=== PATIENT | female | born 1975 | race Caucasian/White ===

== ENCOUNTER 2017-07-29 15:33 | Emergency (ER) | payer MEDICAID, OTHER ==
[~2017-07-29] VITALS: Ht 157.5 cm; Wt 95.0 kg
[~2017-07-29 15:33] MED LIST: GABA600T2 PO; LURA120T PO; PROP10TA PO
[2017-07-29] MEDS ORDERED: LORA-446 PO (15:54)
[2017-07-29] MEDS ORDERED: SODIUM CHLORIDE 0.9% 1,000 ML IV ONE (16:01)
[2017-07-29] MEDS ORDERED: morphine SULFATE 10 MG/ML, 1ML ONE (16:11)
[2017-07-29] MEDS ORDERED: METOCLOPRAMIDE 5 MG/ML, 2ML ONE (16:11)
[2017-07-29] MEDS: MORPHINE SULFATE 4 MG/ML, 1ML IVPush PRN ×2 (16:15→16:45)
[2017-07-29] MEDS ORDERED: SODIUM CHLORIDE FLUSH 10ML SYR IVF ONE (16:30)
[2017-07-29] MEDS ORDERED: METOCLOPRAMIDE 5 MG/ML, 2ML IVPush ONE (16:30)
[2017-07-29 17:47] VITALS: BP 135/77
== END 2017-07-29 17:49 | disposition home or self-care (01) ==
LOC: ED 17:14
DX: R51 Headache (principal); Z90.49 Acquired absence of other specified parts of digestive tract; F17.200 Nicotine dependence, unspecified, uncomplicated
CPT/HCPCS: 70450; 96361; 96374; 96375; 96376; 99284; J2765; J7030

== ENCOUNTER 2017-08-24 20:02 | Emergency (ER) | payer MEDICAID ==
[~2017-08-24] VITALS: Ht 158.8 cm; Wt 95.0 kg
[~2017-08-24 20:02] MED LIST changes: +LORA-446 PO
== END 2017-08-24 21:49 | disposition home or self-care (01) ==
LOC: EDBD 20:02 → MERGE 21:44 → ED 21:44
DX: G24.09 Other drug induced dystonia (principal); T50.995A Adverse effect of other drugs, medicaments and biological substances, initial encounter; N76.4 Abscess of vulva; Y92.89 Other specified places as the place of occurrence of the external cause
CPT/HCPCS: 99283

== ENCOUNTER 2017-11-17 09:35 | Emergency (ER) | payer MEDICAID ==
[~2017-11-17] VITALS: Ht 158.8 cm; Wt 77.9 kg
[2017-11-17 09:37] VITALS: BP 126/84
[2017-11-17 10:36] LABS: CULTURE INDICATED? YES; MICROSCOPIC INDICATED
[2017-11-18] MEDS ORDERED: RISP2TAB3 PO (07:57)
== END 2017-11-17 11:10 | disposition home or self-care (01) ==
LOC: ED 10:19
DX: N75.1 Abscess of Bartholin's gland (principal); Z90.49 Acquired absence of other specified parts of digestive tract
CPT/HCPCS: 81001; 87086; 99284

== ENCOUNTER 2017-11-18 04:40 | Emergency (ER) | payer MEDICAID ==
[2017-11-18] MEDS ORDERED: SODIUM CHLORIDE 0.9% 1,000ML IVBOLUS ONE ×2 (05:30→08:30)
[2017-11-18] MEDS ORDERED: SODIUM CHLORIDE FLUSH 10ML SYR IVF ONE ×2 (05:30→08:30)
[2017-11-18 05:44] LABS: BASOPHILS % (AUTO) 0 % (0-1); EOSINOPHILS # (AUTO) 0.04 x10^3/uL (0-0.4); EOSINOPHILS % (AUTO) 0 % (1-7); LYMPHOCYTES # (AUTO) 1.99 x10^3/uL (1-3.4); LYMPHOCYTES % (AUTO) 19 % (22-44); MD NO; MEAN CORPUSCULAR HEMOGLOBIN 32.1 pg (27.0-34.8); MEAN CORPUSCULAR HGB CONC 34.4 g/dL (32.4-35.8); MEAN CORPUSCULAR VOLUME 93.2 fL (80-100); MEAN PLATELET VOLUME 9.4 fL (7.4-10.4); MONOCYTES # (AUTO) 0.32 x10^3/uL (0.2-0.8); MONOCYTES % (AUTO) 3 % (2-9); NEUTROPHILS # (AUTO) 8.15 x10^3/uL (1.8-6.8); NEUTROPHILS % (AUTO) 78 % (42-75); PLATELET COUNT 290 x10^3/uL (130-400); RED BLOOD COUNT 4.67 x10^6/uL (3.82-5.3); RED CELL DISTRIBUTION WIDTH 13.1 % (9.6-15.2)
[2017-11-18 05:59] LABS: ALBUMIN 4.3 g/dL (3.4-5.0); ANION GAP 14 mmol/L (5-15); CHLORIDE 107 mmol/L (98-107); CREATININE 0.75 mg/dL (0.55-1.02); SALICYLATE LEVEL 2.3 mg/dL (2.8-20.0)
[2017-11-18 06:08] LABS: ACETAMINOPHEN < 2 mcg/mL (10-30)
[2017-11-18 06:46] LABS: MICROSCOPIC AUTO
[2017-11-18 06:47] LABS: CULTURE INDICATED? NO
[2017-11-18 06:49] LABS: AMPHETAMINE SCREEN, URINE Negative (Negative); BARBITURATE SCREEN, URINE Negative (Negative); BENZODIAZEPINE SCREEN, URINE Negative (Negative); CANNABINOID SCREEN, URINE Negative (Negative); COCAINE SCREEN, URINE Negative (Negative); METHADONE SCREEN, URINE Negative (Negative); OPIATE SCREEN, URINE Negative (Negative)
[2017-11-18] MEDS ORDERED: RISP2TAB3 PO (07:57)
[2017-11-18 07:59] VITALS: BP 116/79
== END 2017-11-18 10:10 | disposition home or self-care (01) ==
LOC: ED 05:30
DX: R41.82 Altered mental status, unspecified (principal); I45.6 Pre-excitation syndrome
CPT/HCPCS: 36415; 70450; 71045; 80048; 80307; 80329; 81001; 82040; 82140; 85025; 93005; 96360; 99285; J7030; G0480

== ENCOUNTER 2018-03-02 18:53 | Emergency (ER) | payer MEDICAID ==
[~2018-03-02] VITALS: Ht 157.5 cm; Wt 78.0 kg
[~2018-03-02 18:53] MED LIST changes: +BENZ2AMP4 PO; +LURA20TA PO; +RISP2TAB3 PO
[2018-03-02] MEDS ORDERED: ASPIRIN 81 MG TABLET CHEW ONE (19:21)
[2018-03-02] MEDS ORDERED: ASPIRIN 81 MG TABLET CHEW PO ONE (19:30)
[2018-03-02 19:32] LABS: BASOPHILS # (AUTO) 0.03 x10^3/uL (0-0.1); BASOPHILS % (AUTO) 0 % (0-1); EOSINOPHILS # (AUTO) 0.16 x10^3/uL (0-0.4); EOSINOPHILS % (AUTO) 2 % (1-7); LYMPHOCYTES # (AUTO) 2.36 x10^3/uL (1-3.4); LYMPHOCYTES % (AUTO) 27 % (22-44); MD NO; MEAN CORPUSCULAR HEMOGLOBIN 32.2 pg (27.0-34.8); MEAN CORPUSCULAR HGB CONC 34.2 g/dL (32.4-35.8); MEAN CORPUSCULAR VOLUME 94.3 fL (80-100); MONOCYTES # (AUTO) 0.39 x10^3/uL (0.2-0.8); MONOCYTES % (AUTO) 4 % (2-9); NEUTROPHILS # (AUTO) 5.86 x10^3/uL (1.8-6.8); NEUTROPHILS % (AUTO) 67 % (42-75); PLATELET COUNT 244 x10^3/uL (130-400); RED BLOOD COUNT 3.98 x10^6/uL (3.82-5.3); RED CELL DISTRIBUTION WIDTH 13.2 % (9.6-15.2)
[2018-03-02] MEDS ORDERED: LORazepam 2 MG/ML, 1ML ONE (19:41)
[2018-03-02 19:45] LABS: ALBUMIN 3.6 g/dL (3.4-5.0); ANION GAP 7 mmol/L (5-15); CALCIUM 8.8 mg/dL (8.5-10.1); CHLORIDE 111 mmol/L (98-107); CREATININE 0.71 mg/dL (0.55-1.02)
[2018-03-02 19:48] LABS: TROPONIN I < 0.015 ng/mL (0.000-0.045)
[2018-03-02] MEDS ORDERED: LORazepam 2 MG/ML, 1ML IVPush STA (20:06)
[2018-03-02 20:09] VITALS: BP 129/93
== END 2018-03-02 21:02 | disposition home or self-care (01) ==
LOC: ED 19:35
DX: R07.2 Precordial pain (principal); F41.1 Generalized anxiety disorder; R06.4 Hyperventilation; Z87.891 Personal history of nicotine dependence
CPT/HCPCS: 36415; 80048; 82040; 84484; 85025; 93005; 96374; 99285; J2060

== ENCOUNTER 2018-03-23 21:28 | Emergency (ER) | payer MEDICAID ==
[~2018-03-23] VITALS: Ht 157.5 cm; Wt 78.0 kg
[2018-03-23 23:39] VITALS: BP 117/76
== END 2018-03-23 23:41 | disposition home or self-care (01) ==
LOC: ED 23:39
DX: R29.818 Other symptoms and signs involving the nervous system (principal)
CPT/HCPCS: 99283

== ENCOUNTER 2018-04-26 18:58 | Emergency (ER) | payer MEDICAID ==
[~2018-04-26] VITALS: Ht 157.5 cm; Wt 71.0 kg
[2018-04-26] MEDS ORDERED: DIPH25CA61 PO (19:18)
[2018-04-26] MEDS ORDERED: ARIP400S IJ (19:18)
[2018-04-26 19:19] VITALS: BP 108/66
[2018-04-26] MEDS ORDERED: LORazepam 1MG TABLET ONE (19:46)
[2018-04-26] MEDS ORDERED: LORazepam 1MG TABLET PO ONE (20:00)
== END 2018-04-26 19:59 | disposition home or self-care (01) ==
LOC: ED 19:10
DX: F41.1 Generalized anxiety disorder (principal); Z00.00 Encounter for general adult medical examination without abnormal findings; I45.6 Pre-excitation syndrome; F20.9 Schizophrenia, unspecified
CPT/HCPCS: 99284

== ENCOUNTER 2018-04-26 20:57 | Emergency (ER) | payer MEDICAID ==
[~2018-04-26] VITALS: Ht 157.5 cm; Wt 71.8 kg
[~2018-04-26 20:57] MED LIST changes: +ARIP400S IJ; +DIPH25CA61 PO
[2018-04-26 21:10] VITALS: BP 105/77
== END 2018-04-26 21:34 | disposition left against medical advice (07) ==
LOC: ED 21:28
DX: F20.9 Schizophrenia, unspecified (principal); Z53.21 Procedure and treatment not carried out due to patient leaving prior to being seen by health care provider

== ENCOUNTER 2018-05-07 15:47 | Emergency (ER) | payer MEDICAID ==
[~2018-05-07] VITALS: Ht 157.5 cm; Wt 72.0 kg
[2018-05-07] MEDS ORDERED: LORazepam 2 MG/ML, 1ML ONE (15:49)
[2018-05-07] MEDS ORDERED: SODIUM CHLORIDE FLUSH 10ML SYR IVF ONE (16:00)
[2018-05-07 16:08] LABS: BASOPHILS # (AUTO) 0.02 x10^3/uL (0-0.1); BASOPHILS % (AUTO) 0 % (0-1); EOSINOPHILS # (AUTO) 0.15 x10^3/uL (0-0.4); EOSINOPHILS % (AUTO) 2 % (1-7); LYMPHOCYTES # (AUTO) 3.16 x10^3/uL (1-3.4); LYMPHOCYTES % (AUTO) 39 % (22-44); MD NO; MEAN CORPUSCULAR HEMOGLOBIN 31.9 pg (27.0-34.8); MEAN CORPUSCULAR HGB CONC 34.1 g/dL (32.4-35.8); MEAN CORPUSCULAR VOLUME 93.6 fL (80-100); MEAN PLATELET VOLUME 9.8 fL (7.4-10.4); MONOCYTES # (AUTO) 0.34 x10^3/uL (0.2-0.8); MONOCYTES % (AUTO) 4 % (2-9); NEUTROPHILS # (AUTO) 4.41 x10^3/uL (1.8-6.8); NEUTROPHILS % (AUTO) 55 % (42-75); PLATELET COUNT 244 x10^3/uL (130-400)
[2018-05-07 16:14] LABS: ALANINE AMINOTRANSFERASE 21 U/L (12-78); ANION GAP 9 mmol/L (5-15); CALCIUM 8.9 mg/dL (8.5-10.1); CHLORIDE 112 mmol/L (98-107); CREATININE 0.75 mg/dL (0.55-1.02); INTERNATIONAL NORMALIZED RATIO 0.97 (0.93-1.1)
[2018-05-07 16:19] LABS: ALKALINE PHOSPHATASE 64 U/L (45-117); BILIRUBIN,TOTAL 0.5 mg/dL (0.2-1.0); TOTAL PROTEIN 7.3 g/dL (6.4-8.2); TROPONIN I < 0.015 ng/mL (0.000-0.045)
[2018-05-07] MEDS ORDERED: DIPHENHYDRAMINE 50 MG/ML, 1ML ONE (16:25)
[2018-05-07] MEDS ORDERED: DIPHENHYDRAMINE 50 MG/ML, 1ML IVPush ONE (16:30)
[2018-05-07 17:18] VITALS: BP 115/74
== END 2018-05-07 17:31 | disposition home or self-care (01) ==
LOC: ED 17:00
DX: R55 Syncope and collapse (principal); I45.6 Pre-excitation syndrome
CPT/HCPCS: 36415; 80053; 83880; 84484; 85025; 85610; 85730; 96374; 99284; J1200

== ENCOUNTER 2018-05-27 19:16 | Emergency (ER) | payer MEDICAID ==
[~2018-05-27] VITALS: Ht 170.2 cm; Wt 75.0 kg
[2018-05-27 20:39] LABS: BASOPHILS # (AUTO) 0.04 x10^3/uL (0-0.1); BASOPHILS % (AUTO) 0 % (0-1); EOSINOPHILS # (AUTO) 0.03 x10^3/uL (0-0.4); EOSINOPHILS % (AUTO) 0 % (1-7); LYMPHOCYTES % (AUTO) 19 % (22-44); MD NO; MEAN CORPUSCULAR HEMOGLOBIN 32.7 pg (27.0-34.8); MEAN CORPUSCULAR HGB CONC 35.1 g/dL (32.4-35.8); MEAN CORPUSCULAR VOLUME 93.1 fL (80-100); MEAN PLATELET VOLUME 9.3 fL (7.4-10.4); MONOCYTES # (AUTO) 0.35 x10^3/uL (0.2-0.8); MONOCYTES % (AUTO) 3 % (2-9); NEUTROPHILS # (AUTO) 9.03 x10^3/uL (1.8-6.8); NEUTROPHILS % (AUTO) 78 % (42-75); PLATELET COUNT 279 x10^3/uL (130-400); RED BLOOD COUNT 4.31 x10^6/uL (3.82-5.3)
[2018-05-27 20:52] LABS: ALBUMIN 3.8 g/dL (3.4-5.0); ANION GAP 10 mmol/L (5-15); CALCIUM 9.4 mg/dL (8.5-10.1); CHLORIDE 112 mmol/L (98-107); CREATININE 0.77 mg/dL (0.55-1.02)
[2018-05-27 20:56] LABS: TROPONIN I < 0.015 ng/mL (0.000-0.045)
[2018-05-27 21:15] VITALS: BP 117/77
== END 2018-05-27 20:36 | disposition home or self-care (01) ==
LOC: ED 20:29
DX: R07.89 Other chest pain (principal); I45.6 Pre-excitation syndrome
CPT/HCPCS: 36415; 80048; 82040; 84484; 85025; 93005; 99285

== ENCOUNTER 2018-06-13 20:25 | Emergency (ER) | payer MEDICAID ==
[~2018-06-13] VITALS: Ht 157.5 cm; Wt 71.4 kg
[2018-06-13 20:53] LABS: BASOPHILS # (AUTO) 0.05 x10^3/uL (0-0.1); BASOPHILS % (AUTO) 1 % (0-1); EOSINOPHILS # (AUTO) 0.15 x10^3/uL (0-0.4); EOSINOPHILS % (AUTO) 2 % (1-7); LYMPHOCYTES # (AUTO) 2.18 x10^3/uL (1-3.4); LYMPHOCYTES % (AUTO) 30 % (22-44); MD NO; MEAN CORPUSCULAR HEMOGLOBIN 31.8 pg (27.0-34.8); MEAN CORPUSCULAR HGB CONC 33.6 g/dL (32.4-35.8); MEAN CORPUSCULAR VOLUME 94.6 fL (80-100); MEAN PLATELET VOLUME 9.4 fL (7.4-10.4); MONOCYTES # (AUTO) 0.33 x10^3/uL (0.2-0.8); MONOCYTES % (AUTO) 5 % (2-9); NEUTROPHILS # (AUTO) 4.68 x10^3/uL (1.8-6.8); NEUTROPHILS % (AUTO) 63 % (42-75); PLATELET COUNT 273 x10^3/uL (130-400); RED BLOOD COUNT 4.27 x10^6/uL (3.82-5.3); RED CELL DISTRIBUTION WIDTH 13.6 % (9.6-15.2)
[2018-06-13 21:04] LABS: ALBUMIN 3.9 g/dL (3.4-5.0); ANION GAP 7 mmol/L (5-15); CHLORIDE 111 mmol/L (98-107); CREATININE 0.67 mg/dL (0.55-1.02)
[2018-06-13 21:08] LABS: TROPONIN I < 0.015 ng/mL (0.000-0.045)
[2018-06-13 21:25] VITALS: BP 102/69
[2018-06-13] MEDS ORDERED: ACETAMINOPHEN 500 MG TABLET ONE (22:00)
[2018-06-13] MEDS ORDERED: ACETAMINOPHEN 500 MG TABLET PO ONE (22:00)
== END 2018-06-13 22:04 | disposition home or self-care (01) ==
LOC: ED 22:00
DX: R07.89 Other chest pain (principal); F20.9 Schizophrenia, unspecified; Z90.49 Acquired absence of other specified parts of digestive tract; Z90.710 Acquired absence of both cervix and uterus; Z87.891 Personal history of nicotine dependence
CPT/HCPCS: 36415; 80048; 82040; 84484; 85025; 93005; 99285

== ENCOUNTER 2018-06-17 19:40 | Emergency (ER) | payer MEDICAID ==
[~2018-06-17] VITALS: Ht 157.5 cm; Wt 76.0 kg
[2018-06-17 20:02] VITALS: BP 97/71
== END 2018-06-17 20:41 | disposition home or self-care (01) ==
LOC: ED 20:40
DX: J00 Acute nasopharyngitis [common cold] (principal); F20.9 Schizophrenia, unspecified; F41.1 Generalized anxiety disorder; Z87.891 Personal history of nicotine dependence; Z88.8 Allergy status to other drugs, medicaments and biological substances; Z90.49 Acquired absence of other specified parts of digestive tract
CPT/HCPCS: 99283

== ENCOUNTER 2018-06-28 12:51 | Emergency (ER) | payer MEDICAID ==
[~2018-06-28] VITALS: Ht 167.6 cm; Wt 65.0 kg
[2018-06-28] MEDS ORDERED: LORazepam 2 MG/ML, 1ML IM ONE (13:00)
[2018-06-28] MEDS ORDERED: LORazepam 2 MG/ML, 1ML ONE (13:15)
[2018-06-28 13:21] LABS: BASOPHILS # (AUTO) 0.06 x10^3/uL (0-0.1); BASOPHILS % (AUTO) 1 % (0-1); EOSINOPHILS # (AUTO) 0.23 x10^3/uL (0-0.4); EOSINOPHILS % (AUTO) 3 % (1-7); LYMPHOCYTES # (AUTO) 3.06 x10^3/uL (1-3.4); LYMPHOCYTES % (AUTO) 39 % (22-44); MD NO; MEAN CORPUSCULAR HEMOGLOBIN 32.5 pg (27.0-34.8); MEAN CORPUSCULAR HGB CONC 34.2 g/dL (32.4-35.8); MEAN CORPUSCULAR VOLUME 94.9 fL (80-100); MEAN PLATELET VOLUME 9.4 fL (7.4-10.4); MONOCYTES # (AUTO) 0.29 x10^3/uL (0.2-0.8); MONOCYTES % (AUTO) 4 % (2-9); NEUTROPHILS # (AUTO) 4.17 x10^3/uL (1.8-6.8); NEUTROPHILS % (AUTO) 53 % (42-75); PLATELET COUNT 275 x10^3/uL (130-400); RED BLOOD COUNT 4.04 x10^6/uL (3.82-5.3); RED CELL DISTRIBUTION WIDTH 13.3 % (9.6-15.2)
[2018-06-28] MEDS ORDERED: DIPHENHYDRAMINE 50 MG/ML, 1ML ONE (13:22)
[2018-06-28 13:30] LABS: ALBUMIN 3.7 g/dL (3.4-5.0); ANION GAP 10 mmol/L (5-15); CALCIUM 8.6 mg/dL (8.5-10.1); CHLORIDE 112 mmol/L (98-107); CREATININE 0.65 mg/dL (0.55-1.02)
[2018-06-28] MEDS ORDERED: DIPHENHYDRAMINE 50 MG/ML, 1ML IM ONE (13:30)
[2018-06-28 13:55] LABS: HCG UR SG 1.015 (1.003-1.030); MICROSCOPIC NOT IND
[2018-06-28 14:01] LABS: CULTURE INDICATED? NO
[2018-06-28 14:02] VITALS: BP 110/73
== END 2018-06-28 14:48 | disposition home or self-care (01) ==
LOC: ED 14:28
DX: F41.1 Generalized anxiety disorder (principal); R06.4 Hyperventilation
CPT/HCPCS: 36415; 80048; 81003; 81025; 82040; 85025; 93005; 96372; 99285; J1200; J2060

== ENCOUNTER 2018-08-25 12:27 | Emergency (ER) | payer MEDICAID ==
[~2018-08-25] VITALS: Ht 157.5 cm; Wt 68.0 kg
[2018-08-25 12:31] VITALS: BP 124/89
[2018-08-25 12:53] LABS: BASOPHILS # (AUTO) 0.04 x10^3/uL (0-0.1); BASOPHILS % (AUTO) 1 % (0-1); EOSINOPHILS # (AUTO) 0.06 x10^3/uL (0-0.4); EOSINOPHILS % (AUTO) 1 % (1-7); LYMPHOCYTES # (AUTO) 1.78 x10^3/uL (1-3.4); LYMPHOCYTES % (AUTO) 26 % (22-44); MD NO; MEAN CORPUSCULAR HEMOGLOBIN 33.1 pg (27.0-34.8); MEAN CORPUSCULAR VOLUME 94.6 fL (80-100); MEAN PLATELET VOLUME 9.1 fL (7.4-10.4); MONOCYTES # (AUTO) 0.29 x10^3/uL (0.2-0.8); MONOCYTES % (AUTO) 4 % (2-9); NEUTROPHILS # (AUTO) 4.58 x10^3/uL (1.8-6.8); NEUTROPHILS % (AUTO) 68 % (42-75); PLATELET COUNT 258 x10^3/uL (130-400); RED BLOOD COUNT 3.86 x10^6/uL (3.82-5.3); RED CELL DISTRIBUTION WIDTH 12.7 % (9.6-15.2)
[2018-08-25 13:04] LABS: ALBUMIN 3.8 g/dL (3.4-5.0); ANION GAP 9 mmol/L (5-15); CALCIUM 8.5 mg/dL (8.5-10.1); CHLORIDE 113 mmol/L (98-107)
[2018-08-25 13:06] LABS: CREATININE 0.67 mg/dL (0.55-1.02)
== END 2018-08-25 14:25 | disposition home or self-care (01) ==
LOC: ED 12:48
DX: R56.9 Unspecified convulsions (principal); R51 Headache; F41.1 Generalized anxiety disorder; Z90.49 Acquired absence of other specified parts of digestive tract; Z90.710 Acquired absence of both cervix and uterus; Z87.891 Personal history of nicotine dependence
CPT/HCPCS: 36415; 80048; 82040; 83605; 85025; 93005; 99284

== ENCOUNTER 2018-08-25 14:15 | Emergency (ER) | payer MEDICAID ==
[~2018-08-25] VITALS: Ht 162.6 cm; Wt 70.0 kg
[2018-08-25 14:23] VITALS: BP 133/84
[2018-08-25] MEDS ORDERED: ZIPRASIDONE 20MG CAPSULE PO ONE (14:30)
[2018-08-25] MEDS ORDERED: ZIPRASIDONE 20MG CAPSULE ONE (14:33)
== END 2018-08-25 15:14 | disposition home or self-care (01) ==
LOC: ED 14:37
DX: F29 Unspecified psychosis not due to a substance or known physiological condition (principal); F20.9 Schizophrenia, unspecified; F41.1 Generalized anxiety disorder; Z90.49 Acquired absence of other specified parts of digestive tract; Z90.710 Acquired absence of both cervix and uterus; Z87.891 Personal history of nicotine dependence
CPT/HCPCS: 99281; 99284